=== PATIENT | female | born 1935 | race Caucasian/White ===

== ENCOUNTER 2018-08-02 13:20 | Emergency (ER) | payer BC ==
--- NOTE | 2018-08-02 16:09 | XRAY Report ---
Reason: GLF Procedure Date: 08/02/2018 Accession Number: [id number] / [id number] Procedure: XR - Elbow 3 View LT CPT Code: FULL RESULT: EXAM: LEFT ELBOW RADIOGRAPHY EXAM DATE: 08/02/2018 03:38 PM. CLINICAL HISTORY: Ground level fall. Arm fell between box spring and wall. Patient states no pain, but has visible bruising. COMPARISON: None. TECHNIQUE: 3 views. FINDINGS: Bones: No acute fracture appreciated. Joints: No dislocation or subluxation. Probable small effusion with mild elevation of the anterior fat pad only. Soft Tissues: Mild soft tissue swelling medially. IMPRESSION: 1. Probable small joint effusion, but no appreciable acute fracture. Consider a trial of immobilization and repeat imaging in 7-10 days. RADIA
--- NOTE | 2018-08-02 16:22 | ED Physician Documentation ---
PD HPI UPPER EXT INJURY - Stated complaint Stated Complaint: GLF LEFT ARM - Chief complaint Chief Complaint: Trauma Ext - History obtained from History obtained from: Patient - History of Present Illness Location: Left, Elbow, Forearm Type of injury: Crush Where injury occurred: Home Timing - onset: Yesterday Associated symptoms: Weakness Similar symptoms before: Has not had sx before - Additonal information Additional information: The patient is an 83-year-old female who presents with injury to her left upper extremity. Last night while going back to bed to the bathroom she stumbled and fell into the bed, and got her left forearm caught between the box spring in the bed frame. For 3 or 4 hours she was unable to free her forearm from the entrapment. She denies any other injuries. She presents now because of swelling and ecchymosis of her left forearm, and inability to extend the fingers on her left hand. Review of Systems Constitutional: denies: Fever Eyes: denies: Decreased vision Ears: denies: Tinnitus/ringing Nose: denies: Congestion Throat: denies: Sore throat Cardiac: denies: Chest pain / pressure Respiratory: denies: Dyspnea, Cough GI: denies: Abdominal Pain, Nausea, Vomiting : denies: Dysuria Skin: denies: Rash Musculoskeletal: reports: Extremity swelling (Left forearm.). denies: Neck pain, Back pain Neurologic: reports: Focal weakness (Fingers of left hand.). denies: Numbness, Altered mental status, Head injury, LOC PD PAST MEDICAL HISTORY - Past Medical History Cardiovascular: Hypertension - Past Surgical History Past Surgical History: No - Allergies Allergies/Adverse Reactions: Allergies Allergy/AdvReac Type Severity Reaction Status Date / Time No Known Drug Allergies Allergy Verified 08/02/18 13:27 - Living Situation Living Situation: reports: Alone - Social History Does the pt smoke?: No Smoking Status: Never smoker Does the pt drink ETOH?: No Does the pt have substance abuse?: No - Immunizations Immunizations are current?: Yes PD ED PE NORMAL - Vitals Vital signs reviewed: Yes (Mild systolic hypertension.) - General General: Alert and oriented X 3, Well developed/nourished - HEENT HEENT: Atraumatic, EOMI, Pharynx benign - Neck Neck: Supple, no meningeal sign, No adenopathy, No JVD - Cardiac Cardiac: RRR - Respiratory Respiratory: No respiratory distress, Clear bilaterally - Abdomen Abdomen: Soft, Non tender - Back Back: No CVA TTP - Derm Derm: No rash - Extremities Extremities: No tenderness to palpate, Other (There is ecchymosis and swelling of the left forearm with mild tenderness to palpation near the elbow. She can fully flex and extend the elbow and supinate and pronate the left forearm without discomfort. There is no tenderness to palpation of the wrist, which has full range of motion. Her fingers are in a slightly flexed position, and she is not able to actively extend them, although there is no problem passively extending the fingers. 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, No sensory deficit, Normal speech, Other (Decreased extensor strength in the fingers of the left hand.) Eye Opening: Spontaneous Motor: Obeys Commands Verbal: Oriented GCS Score: 15 Results - Vitals Vitals: Oxygen O2 Source Room air - Rads (name of study) left elbow Radiology: Prelim report reviewed, EMP read contemporaneously, See rad report (Probable small joint effusion but no appreciable acute fracture.) PD MEDICAL DECISION MAKING - ED course Complexity details: reviewed results, re-evaluated patient, considered differential, d/w patient, d/w family, d/w automobile sales consultant ED course: The patient's presentation is most consistent with neuropraxia of the left forearm following a crush injury, in which her left forearm was stuck between the box spring and frame of her bed. Her presentation does not suggest acute stroke. Her fall at the bedside was caused by stumbling in the dark, and not a result of a syncopal episode. I discussed with her and her female comb capper the likely course of injury, symptomatic treatment and outpatient follow-up, as well as potentially worrisome signs or symptoms that should prompt reevaluation in the emergency department. Departure - Departure Disposition: 01 Home, Self Care Clinical Impression: Crushing injury Neuropraxia of left upper extremity Qualifiers: Encounter type: initial encounter Qualified Code(s): S44.92XA - Injury of unspecified nerve at shoulder and upper arm level, left arm, initial encounter Instructions: ED Neuropathy Peripheral Follow-Up: [facility] [place] [Provider Group] Comments: Keep your left arm elevated as much the time as possible. You can use Tylenol or ibuprofen if needed for discomfort. Manually extend her fingers frequently throughout the day, in anticipation of nerve function return. Follow-up with your primary physician within 1-2 weeks. Call to schedule appointment. Return to the emergency department if you develop increasing pain, or increasing numbness or weakness Discharge Date/Time: 08/02/18 16:38
[2018-08-02 16:37] VITALS: BP 134/82
== END 2018-08-02 16:38 | disposition home or self-care (01) ==
LOC: ED 13:20
DX: S54.92XA Injury of unspecified nerve at forearm level, left arm, initial encounter (principal); W23.1XXA Caught, crushed, jammed, or pinched between stationary objects, initial encounter; Y93.89 Activity, other specified; Y92.003 Bedroom of unspecified non-institutional (private) residence as the place of occurrence of the external cause
CPT/HCPCS: 99283

== ENCOUNTER 2021-11-03 08:00 | Outpatient (CLI) | payer BC ==
--- NOTE | 2021-11-03 19:24 | XRAY Report ---
PROCEDURE: Hip w/Pelvis 1V LT INDICATIONS: LEFT HIP PAIN TECHNIQUE: AP pelvis with lateral view(s) of the hip(s). COMPARISON: None. FINDINGS: Bones: There is an impacted appearance within the left femoral neck. Positioning is somewhat suboptim al. Soft tissues: The visualized bowel gas pattern is normal. No suspicious soft tissue calcifications. IMPRESSION: Impacted appearance of the left femoral neck concerning for fracture. It is noted positi oning is suboptimal and CT is recommended. Reviewed by: Jocelyne Clifford MD on 11/03/2021 7:23 PM PDT Approved by: Jocelyne Clifford MD on 11/03/2021 7:23 PM PDT Station ID: [id number]
== END 2021-11-03 23:59 | disposition home or self-care (01) ==
LOC: DI.S 08:00
PROVIDERS: ATTEND Emergency Medicine
DX: S72.002A Fracture of unspecified part of neck of left femur, initial encounter for closed fracture (principal)

== ENCOUNTER 2021-11-16 08:00 | Outpatient (CLI) | payer BC ==
--- NOTE | 2021-11-17 10:36 | XRAY Report ---
PROCEDURE: Hip 2 View LT INDICATIONS: HIP ARTHROPLASTY TECHNIQUE: 2 views of the hip were acquired. COMPARISON: None. FINDINGS: Bones: No fractures or dislocations. Left hip arthroplasty is present with prosthetic components in expected positions. No periprosthetic fractures or evidence of loosening/infection. No suspicious bon y lesions. The visualized pelvic ring appears intact. Mild right hip joint space narrowing. Soft tissues: No suspicious soft tissue calcifications or masses. IMPRESSION: Expected appearance and alignment of left hip arthroplasty. Reviewed by: ANNA Meadows on 11/17/2021 10:35 AM PDT Approved by: Chiqui Chester MD on 11/17/2021 10:35 AM PDT Station ID: [id number]
== END 2021-11-16 23:59 | disposition home or self-care (01) ==
LOC: DI.WOS 08:00
PROVIDERS: ATTEND Orthopaedic Surgery
DX: M25.552 Pain in left hip (principal); Z96.642 Presence of left artificial hip joint